=== PATIENT | male | born 1975 | race Hispanic/Latino ===

== ENCOUNTER 2020-09-05 12:41 | Observation (INO) | payer OTHER ==
[~2020-09-05] VITALS: Ht 180.3 cm; Wt 131.5 kg
[2020-09-05 13:45] LABS: BASOPHILS # (AUTO) 0.1 (0.0-0.1); BASOPHILS % 0.7 % (0.0-1.0); EOSINOPHILS # (AUTO) 0.3 (0.0-0.4); HEMATOCRIT 47.5 % (38.2-49.6); HEMOGLOBIN 16.2 g/dL (14.0-18.0); LYMPHOCYTES # (AUTO) 2.7 (1.0-3.2); LYMPHOCYTES % 32.7 % (18.0-39.1); MEAN CORPUSCULAR HEMOGLOBIN 31.5 pg (28-32); MEAN CORPUSCULAR HGB CONC 34.1 g/dL (31-35); MEAN CORPUSCULAR VOLUME 92.4 fL (81-99); MONOCYTES # (AUTO) 0.7 (0.2-0.8); MONOCYTES % 9.1 % (4.4-11.3); NEUTROPHILS # (AUTO) 4.3 (2.1-6.9); NEUTROPHILS % 53.3 % (38.7-80.0); PLATELET COUNT 208 x10e3/uL (140-360); RED BLOOD COUNT 5.14 x10e6/uL (4.3-5.7); RED CELL DISTRIBUTION WIDTH 12.4 % (11.7-14.4)
[2020-09-05] MEDS ORDERED: ASPIRIN 81 MG CHEW TAB PO ONE ×2 (13:45→15:30)
[2020-09-05 14:06] LABS: ALANINE AMINOTRANSFERASE 73 IU/L (0-55); ALBUMIN 4.4 g/dL (3.5-5.0); ALBUMIN/GLOBULIN RATIO 1.5 (0.8-2.0); ALKALINE PHOSPHATASE 88 IU/L (40-150); ANION GAP 17.6 mmol/L (8-16); BLOOD UREA NITROGEN 28 mg/dL (7-26); BUN/CREATININE RATIO 23 (6-25); CALCIUM 9.3 mg/dL (8.4-10.2); CARBON DIOXIDE 21 mmol/L (22-29); CHLORIDE 101 mmol/L (98-107); CREATINE KINASE 162 IU/L (30-200); EST GLOMERULAR FILTRATION RATE 65 ML/MIN (60-); GLUCOSE 320 mg/dL (74-118); POTASSIUM 3.6 mmol/L (3.5-5.1); SODIUM 136 mmol/L (136-145)
[2020-09-05] MEDS ORDERED: ONDANSETRON HCL INJ 2MG/ML 2ML 2 MG/ML VIAL IV STA (17:12)
[2020-09-05] MEDS ORDERED: SODIUM CHLORIDE 0.9% 1000ML 1,000 ML IV STA (17:12)
[2020-09-05] MEDS ORDERED: ONDANSETRON HCL INJ 2MG/ML 2ML 2 MG/ML VIAL IV PRN ×2 (17:15)
[2020-09-05] MEDS ORDERED: MORPHINE SULFATE INJ 2 MG/ML SYR IV PRN (17:15)
[2020-09-05] MEDS ORDERED: DEXTROSE 50% SYRINGE 50 ML IV PRN (17:15)
[2020-09-05] MEDS ORDERED: NITROGLYCERIN 0.4 MG SUBL SL PRN (17:15)
[2020-09-05] MEDS: FAMOTIDINE 20 MG/2 ML VIAL IV SCH (20:29)
[2020-09-05] MEDS: INSULIN LISPRO 100 UNIT/1 ML 3ML VIAL SQ SCH ×2 (20:53→20:54)
[2020-09-06] VITALS (10 sets, daily range): BP systolic 104–130; BP diastolic 71–87
[2020-09-06 05:59] LABS: BASOPHILS # (AUTO) 0.1 (0.0-0.1); BASOPHILS % 0.6 % (0.0-1.0); EOSINOPHILS # (AUTO) 0.3 (0.0-0.4); EOSINOPHILS % 3.4 % (0.0-6.0); HEMATOCRIT 43.8 % (38.2-49.6); HEMOGLOBIN 14.6 g/dL (14.0-18.0); LYMPHOCYTES # (AUTO) 2.8 (1.0-3.2); LYMPHOCYTES % 33.3 % (18.0-39.1); MEAN CORPUSCULAR HEMOGLOBIN 31.7 pg (28-32); MEAN CORPUSCULAR HGB CONC 33.3 g/dL (31-35); MONOCYTES # (AUTO) 0.8 (0.2-0.8); NEUTROPHILS # (AUTO) 4.5 (2.1-6.9); NEUTROPHILS % 53.2 % (38.7-80.0); PLATELET COUNT 178 x10e3/uL (140-360); RED BLOOD COUNT 4.61 x10e6/uL (4.3-5.7); RED CELL DISTRIBUTION WIDTH 12.4 % (11.7-14.4)
[2020-09-06 06:16] LABS: CREATINE KINASE 91 IU/L (30-200)
[2020-09-06 06:54] LABS: ALBUMIN 3.8 g/dL (3.5-5.0); ALBUMIN/GLOBULIN RATIO 1.5 (0.8-2.0); ANION GAP 17.7 mmol/L (8-16); CHOL/HDL RATIO 3.7 (3.9-4.7); CREATININE, SERUM 0.78 mg/dL (0.72-1.25)
[2020-09-06 06:59] LABS: POTASSIUM 4.7 mmol/L (3.5-5.1)
[2020-09-06] MEDS ORDERED: OMEPRAZOLE40 MG PO (08:14)
[2020-09-06] MEDS ORDERED: METFORMIN HCL1000 MG PO (08:14)
[2020-09-06] MEDS ORDERED: LISINOPRIL40 MG PO (08:14)
[2020-09-06] MEDS ORDERED: INVOKANA300 MG PO (08:14)
[2020-09-06] MEDS ORDERED: ATORVASTATIN CA40 MG PO (08:14)
[2020-09-06] MEDS: FAMOTIDINE 20 MG/2 ML VIAL IV SCH (08:41)
[2020-09-06] MEDS ORDERED: ASPIRIN 81 MG ENTERIC COATED PO SCH (09:00)
[2020-09-06] MEDS ORDERED: SODIUM CHLORIDE 0.9% 1000ML 1,000 ML IV SCH (10:00)
[2020-09-06] MEDS ORDERED: MIDAZOLAM HCL 2 MG/2 ML VIAL ONE (10:05)
[2020-09-06] MEDS ORDERED: VERAPAMIL HCL 2.5 MG/ML 2 ML VIAL ONE (10:05)
[2020-09-06] MEDS ORDERED: FENTANYL CITRATE/PF 100MCG/2 ML INJ ONE (10:06)
[2020-09-06] MEDS ORDERED: IOPAMIDOL 370 MG/ML 200 ML INFUS..BTL INJ ONE (10:06)
[2020-09-06] MEDS ORDERED: HEPARIN SOD/SOD CHLORIDE 2,000 ML ONE (10:06)
[2020-09-06] MEDS ORDERED: SODIUM CHLORIDE 0.9% 1000ML 1,000 ML ONE (10:06)
[2020-09-06] MEDS ORDERED: LIDOCAINE HCL 2% LOCAL 20 ML VIAL ONE (10:06)
[2020-09-06] MEDS ORDERED: HEPARIN SOD/SOD CHLORIDE 1,000 ML ONE (10:26)
[2020-09-06] MEDS ORDERED: ATORVASTATIN 40 MG TAB PO SCH (21:00)
[2020-09-07] MEDS ORDERED: LISINOPRIL 10 MG TAB PO SCH (09:00)
== END 2020-09-06 14:00 | disposition home or self-care (01) ==
LOC: ER 13:45 → ERHOLD 17:21
PROVIDERS: ADMIT Internal Medicine; ATTEND Internal Medicine
DX: I25.110 Atherosclerotic heart disease of native coronary artery with unstable angina pectoris (principal); E78.5 Hyperlipidemia, unspecified; E66.01 Morbid (severe) obesity due to excess calories; Z68.41 Body mass index [BMI] 40.0-44.9, adult; Z20.822 Contact with and (suspected) exposure to COVID-19; E11.40 Type 2 diabetes mellitus with diabetic neuropathy, unspecified
CPT/HCPCS: 36415 ×2; 71045; 76937; 80053 ×2; 80061; 82550 ×2; 82553 ×2; 82948; 83880; 84484 ×2; 85025 ×2; 93005 ×2; 93306; 93458; 93880; 99284; C1887; G0378 ×2; J2001; J2250; J2405; J3010; J7030 ×2; Q9967; U0002; 99152

== ENCOUNTER 2022-06-23 19:43 | Emergency (ER) | payer OTHER ==
[~2022-06-23] VITALS: Ht 180.3 cm; Wt 131.5 kg
[~2022-06-23 19:43] MED LIST: ATORVASTATIN CA40 MG PO; INVOKANA300 MG PO; LISINOPRIL40 MG PO; METFORMIN HCL1000 MG PO; OMEPRAZOLE40 MG PO
[2022-06-23] MEDS ORDERED: ONDANSETRON HCL INJ 2MG/ML 2ML 2 MG/ML VIAL IV STA (20:04)
[2022-06-23] MEDS ORDERED: SODIUM CHLORIDE 0.9% 1000ML 1,000 ML IV ONE (20:06)
[2022-06-23] MEDS ORDERED: SODIUM CHLORIDE FLUSH 10 ML SYR IV PRN (20:07)
[2022-06-23 20:18] LABS: BASOPHILS # (AUTO) 0.1 (0.0-0.1); BASOPHILS % 0.3 % (0.0-1.0); EOSINOPHILS % 0.2 % (0.0-6.0); HEMATOCRIT 50.2 % (38.2-49.6); HEMOGLOBIN 17.5 g/dL (14.0-18.0); LYMPHOCYTES # (AUTO) 2.4 (1.0-3.2); LYMPHOCYTES % 13.2 % (18.0-39.1); MEAN CORPUSCULAR HEMOGLOBIN 31.9 pg (28-32); MEAN CORPUSCULAR HGB CONC 34.9 g/dL (31-35); MEAN CORPUSCULAR VOLUME 91.4 fL (81-99); MONOCYTES # (AUTO) 1.6 (0.2-0.8); MONOCYTES % 8.6 % (4.4-11.3); NEUTROPHILS # (AUTO) 14.3 (2.1-6.9); NEUTROPHILS % 77.2 % (38.7-80.0); PLATELET COUNT 216 x10e3/uL (140-360); RED BLOOD COUNT 5.49 x10e6/uL (4.3-5.7); RED CELL DISTRIBUTION WIDTH 12.3 % (11.7-14.4)
[2022-06-23 20:30] LABS: INR 0.96; PARTIAL THROMBOPLASTIN TIME 29.8 seconds (23.8-35.5); PROTHROMBIN TIME 13.3 seconds (11.9-14.5)
[2022-06-23 20:34] LABS: ALBUMIN/GLOBULIN RATIO 1.9 (0.8-2.0); ANION GAP 16.4 mmol/L (8-16); CALCIUM 10.4 mg/dL (8.4-10.2); CREATININE, SERUM 2.4 mg/dL (0.72-1.25); POTASSIUM 4.4 mmol/L (3.5-5.1)
[2022-06-23 21:43] LABS: CLARITY,URINE HAZY (CLEAR); COLOR,URINE AMBER (YELLOW); KETONES,URINE 1+ (NEGATIVE); LEUKOCYTE ESTERASE ,URINE NEGATIVE (NEGATIVE); NITRITE,URINE NEGATIVE (NEGATIVE); PROTEIN,URINE DIPSTICK 2+ (NEGATIVE); URINE UROBILINOGEN 0.2 mg/dL (0.2 - 1)
[2022-06-23 21:46] LABS: AMPHETAMINES SCREEN,URINE NEGATIVE (NEGATIVE); BENZODIAZEPINES SCREEN,URINE NEGATIVE (NEGATIVE); PHENCYCLIDINE SCREEN,URINE NEGATIVE (NEGATIVE)
[2022-06-23 21:53] LABS: AMORPHOUS SEDIMENT,URINE MANY (FEW); BACTERIA,URINE MODERATE /HPF
[2022-06-23] MEDS ORDERED: ONDANSETRON ODT4 MG PO (23:56)
[2022-06-23] MEDS ORDERED: DICYCLOMINE HCL20 MG PO (23:56)
[2022-06-24 00:12] VITALS: BP 142/71; PULSE 82; RESP 18; O2SAT 100
== END 2022-06-24 00:13 | disposition home or self-care (01) ==
LOC: ER 19:50
DX: R11.2 Nausea with vomiting, unspecified (principal); E86.0 Dehydration; N17.9 Acute kidney failure, unspecified; R42 Dizziness and giddiness; R10.11 Right upper quadrant pain; R10.31 Right lower quadrant pain
CPT/HCPCS: 36415; 70450; 71045; 74176; 80053; 80307; 81001; 83690; 84484; 85025; 85610; 85730; 93005; 99284; J2405; J7030

== ENCOUNTER 2022-08-08 09:25 | Inpatient (IN) | payer OTHER ==
[~2022-08-08] VITALS: Ht 180.3 cm; Wt 124.7 kg
[~2022-08-08 09:25] MED LIST changes: +DICYCLOMINE HCL20 MG PO; +ONDANSETRON ODT4 MG PO
[2022-08-08] MEDS ORDERED: ONDANSETRON HCL INJ 2MG/ML 2ML 2 MG/ML VIAL IV STA (09:53)
[2022-08-08] MEDS ORDERED: SODIUM CHLORIDE 0.9% 1000ML 0 ML ONE (09:54)
[2022-08-08 09:59] LABS: BASOPHILS % 0.3 % (0.0-1.0); EOSINOPHILS # (AUTO) 0.2 (0.0-0.4); EOSINOPHILS % 1.3 % (0.0-6.0); HEMATOCRIT 47.7 % (38.2-49.6); HEMOGLOBIN 16.9 g/dL (14.0-18.0); LYMPHOCYTES % 26.3 % (18.0-39.1); MEAN CORPUSCULAR HEMOGLOBIN 31.9 pg (28-32); MEAN CORPUSCULAR HGB CONC 35.4 g/dL (31-35); MONOCYTES # (AUTO) 0.9 (0.2-0.8); MONOCYTES % 7.6 % (4.4-11.3); NEUTROPHILS # (AUTO) 7.4 (2.1-6.9); NEUTROPHILS % 64.2 % (38.7-80.0); PLATELET COUNT 269 x10e3/uL (140-360); RED CELL DISTRIBUTION WIDTH 12.3 % (11.7-14.4)
[2022-08-08] MEDS ORDERED: SODIUM CHLORIDE 0.9% 1000ML 1,000 ML IV ONE ×2 (10:00→10:15)
[2022-08-08] MEDS ORDERED: SODIUM CHLORIDE 0.9% 1000ML 1,000 ML IV SCH (10:00)
[2022-08-08 10:18] LABS: ALBUMIN 4.6 g/dL (3.5-5.0); ALBUMIN/GLOBULIN RATIO 1.5 (0.8-2.0); ANION GAP 22.1 mmol/L (8-16); CALCIUM 9.8 mg/dL (8.4-10.2); CREATININE, SERUM 4.85 mg/dL (0.72-1.25); POTASSIUM 4.1 mmol/L (3.5-5.1)
[2022-08-08] MEDS ORDERED: ONDANSETRON HCL INJ 2MG/ML 2ML 2 MG/ML VIAL IV PRN (11:15)
[2022-08-08 12:26] LABS: CLARITY,URINE CLEAR (CLEAR); COLOR,URINE YELLOW (YELLOW)
[2022-08-08 12:27] LABS: KETONES,URINE TRACE (NEGATIVE); LEUKOCYTE ESTERASE ,URINE NEGATIVE (NEGATIVE); NITRITE,URINE NEGATIVE (NEGATIVE); PROTEIN,URINE DIPSTICK 2+ (NEGATIVE); URINE UROBILINOGEN 0.2 mg/dL (0.2 - 1)
[2022-08-08 12:31] LABS: BACTERIA,URINE MANY /HPF; RBC,URINE 0-5 /HPF (0-5); WBC,URINE (MAN) 0-5 /HPF (0-5)
[2022-08-08 12:40] VITALS: BP 114/58; PULSE 73; RESP 19; TEMP 98.5; O2SAT 98
[2022-08-08] MEDS: SODIUM CHLORIDE 0.9% 1000ML 1,000 ML IV SCH ×2 (13:21→20:38)
[2022-08-08 13:30] VITALS: BP 114/58; PULSE 73; RESP 19; TEMP 98.5; O2SAT 98
[2022-08-08] MEDS ORDERED: NICOTINE 21 MG/EA PATCH TOP PRN (13:30)
[2022-08-08] MEDS ORDERED: HYDRALAZINE HCL 20 MG/ML VIAL IV PRN (13:30)
[2022-08-08] MEDS ORDERED: DEXTROSE 50% SYRINGE 50 ML IV PRN (13:30)
[2022-08-08] MEDS ORDERED: [UNRECOGNIZED DRUG - OTHER] (15:45)
[2022-08-08] MEDS ORDERED: PROTONIX20 MG PO (15:45)
[2022-08-08] MEDS ORDERED: [UNRECOGNIZED DRUG - OTHER] PO (15:45)
[2022-08-08 15:48] VITALS: BP 117/70; PULSE 76; RESP 16; TEMP 98.6; O2SAT 99
[2022-08-08] MEDS ORDERED: LORATADINE10 MG PO (15:52)
[2022-08-08] MEDS ORDERED: OZEMPIC1 MG/0.71 SQ (15:52)
[2022-08-08] MEDS: INSULIN REGULAR, HUMAN 100 UNIT/1 ML SQ SCH ×2 (16:30→21:00)
[2022-08-08] MEDS ORDERED: MULTI-VITAMIN1 EACH PO (18:58)
[2022-08-08] MEDS: ACETAMINOPHEN 325 MG TAB PO PRN (20:39)
[2022-08-08 20:53] VITALS: BP_SYST 105; BP_SYST 89; BP_DIAS 50; BP_DIAS 61; PULSE 70; RESP 18; TEMP 97.9; O2SAT 99
[2022-08-08 21:00] VITALS: BP 103/61; PULSE 70; RESP 18; TEMP 97.9; O2SAT 95
[2022-08-09] VITALS (7 sets, daily range): BP systolic 94–151; BP diastolic 60–95; PULSE 64–80; RESP 16–18; TEMP 96.5–98.4; O2SAT 97–100
[2022-08-09] MEDS: SODIUM CHLORIDE 0.9% 1000ML 1,000 ML IV SCH ×3 (03:19→19:15)
[2022-08-09] MEDS: ACETAMINOPHEN 325 MG TAB PO PRN (04:21)
[2022-08-09 05:48] LABS: BASOPHILS % 0.5 % (0.0-1.0); EOSINOPHILS # (AUTO) 0.2 (0.0-0.4); HEMATOCRIT 42.9 % (38.2-49.6); HEMOGLOBIN 14.6 g/dL (14.0-18.0); LYMPHOCYTES # (AUTO) 2.2 (1.0-3.2); LYMPHOCYTES % 28.9 % (18.0-39.1); MEAN CORPUSCULAR HEMOGLOBIN 31.9 pg (28-32); MEAN CORPUSCULAR VOLUME 93.7 fL (81-99); MONOCYTES # (AUTO) 0.6 (0.2-0.8); MONOCYTES % 8.3 % (4.4-11.3); NEUTROPHILS # (AUTO) 4.5 (2.1-6.9); PLATELET COUNT 187 x10e3/uL (140-360); RED BLOOD COUNT 4.58 x10e6/uL (4.3-5.7)
[2022-08-09 06:17] LABS: ALBUMIN 3.6 g/dL (3.5-5.0); ALBUMIN/GLOBULIN RATIO 1.6 (0.8-2.0); ANION GAP 12.1 mmol/L (8-16); CALCIUM 8.7 mg/dL (8.4-10.2); CREATININE, SERUM 1.23 mg/dL (0.72-1.25); POTASSIUM 4.1 mmol/L (3.5-5.1)
[2022-08-09] MEDS: INSULIN REGULAR, HUMAN 100 UNIT/1 ML SQ SCH ×4 (07:30→21:00)
[2022-08-09] MEDS: MULTIVITAMINS/MINERALS TAB PO SCH (08:57)
[2022-08-09] MEDS: ATORVASTATIN 40 MG TAB PO SCH (08:57)
[2022-08-09] MEDS: TRAMADOL HCL 50 MG TAB PO PRN (14:12)
[2022-08-10] VITALS: BP 98/52; PULSE 66; RESP 18; TEMP 97.6; O2SAT 96
[2022-08-10] MEDS: ACETAMINOPHEN 325 MG TAB PO PRN (00:50)
[2022-08-10] MEDS: SODIUM CHLORIDE 0.9% 1000ML 1,000 ML IV SCH (02:17)
[2022-08-10 04:00] VITALS: BP 91/58; PULSE 72; RESP 18; TEMP 98.3; O2SAT 98
[2022-08-10 06:41] LABS: ALBUMIN 3.5 g/dL (3.5-5.0); ALBUMIN/GLOBULIN RATIO 1.4 (0.8-2.0); ANION GAP 12.9 mmol/L (8-16); CALCIUM 8.8 mg/dL (8.4-10.2); CREATININE, SERUM 0.82 mg/dL (0.72-1.25); POTASSIUM 3.9 mmol/L (3.5-5.1)
[2022-08-10 08:18] VITALS: BP 120/85; PULSE 71; RESP 18; TEMP 98.3; O2SAT 100
[2022-08-10] MEDS: MULTIVITAMINS/MINERALS TAB PO SCH (09:16)
[2022-08-10] MEDS: ATORVASTATIN 40 MG TAB PO SCH (09:17)
[2022-08-10] MEDS: INSULIN REGULAR, HUMAN 100 UNIT/1 ML SQ SCH (09:19)
[2022-08-10] MEDS: TRAMADOL HCL 50 MG TAB PO PRN (09:22)
[2022-08-10] MEDS ORDERED: DOCUSATE SODIUM 100 MG CAP PO SCH (09:30)
[2022-08-10 12:10] VITALS: BP 131/95; PULSE 70; RESP 16; TEMP 98.1; O2SAT 97
[2022-08-10] MEDS ORDERED: ONDANSETRON HCL 4 MG ORAL DISINTEGRATING TAB PO PRN (12:15)
[2022-08-11] MEDS ORDERED: PANTOPRAZOLE SOD 40 MG TABEC PO SCH (07:30)
== END 2022-08-10 12:55 | disposition home or self-care (01) | DRG 641 ==
LOC: ER 09:30 → ERHOLD 11:20 → MED/SURG2 12:36
PROVIDERS: ADMIT Internal Medicine; ATTEND Internal Medicine
DX: E86.0 Dehydration (principal); N17.9 Acute kidney failure, unspecified; E66.01 Morbid (severe) obesity due to excess calories; Z68.38 Body mass index [BMI] 38.0-38.9, adult; K21.9 Gastro-esophageal reflux disease without esophagitis; E78.00 Pure hypercholesterolemia, unspecified; E11.9 Type 2 diabetes mellitus without complications; K46.9 Unspecified abdominal hernia without obstruction or gangrene; I10 Essential (primary) hypertension; I95.9 Hypotension, unspecified; K57.90 Diverticulosis of intestine, part unspecified, without perforation or abscess without bleeding; R11.2 Nausea with vomiting, unspecified; F17.200 Nicotine dependence, unspecified, uncomplicated; Z20.822 Contact with and (suspected) exposure to COVID-19; R42 Dizziness and giddiness; Z79.84 Long term (current) use of oral hypoglycemic drugs; Z79.899 Other long term (current) drug therapy; Z83.3 Family history of diabetes mellitus; Z82.49 Family history of ischemic heart disease and other diseases of the circulatory system
CPT/HCPCS: 36415; 71045; 74176; 80053; 81001; 82550; 82948; 83690; 83735; 84484; 85025; 87040; 87086; 93005; 99284; J2405; J7030